=== PATIENT | female | born 1925 | race Caucasian/White ===

== ENCOUNTER 2016-04-29 10:02 | Day surgery (SDC) | payer MEDICARE, BC ==
[2005-08-22 01:16] VITALS: BP 118/68
[~2016-04-29] VITALS: Ht 160 cm; Wt 75.0 kg
[2016-04-29] VITALS (13 sets, daily range): BP systolic 128–155; BP diastolic 53–78; PULSE 54–65; TEMP 97.9
[~2016-04-29 10:02] MED LIST: ACETYLCYSTEINE; ASPI325T6 PO; ASPIRIN 32325 MG/TAB PO; ASPIRIN E.C. 8181 MG PO; ATIVAN 0.50.5 MG/TAB PO; CLARITIN; COLACE 100100 MG/CAP PO; COLESTID 1GM1 G PO; DIOVAN160 MG PO; DULCOLAX; DULCOLAX TAB5 MG PO; DUONEB 3 MG/3 ML3 ML IH; FOLIC ACID 40400 MCG PO; FOSAMAX 70MG TA70 MG PO; HYZAAR 12.5 MG-1 TAB PO; HYZAAR 50-12.1 UDTAB PO; IPRATROPIUM 2.2.5 ML IH; IRON325 M1 PO; LIPITOR 80MG80 MG PO; LOPRESSOR 225 MG/TAB PO; LOVENOX 4040 MG/0.4 SQ; MIRAPEX 0.0.125 MG/T; NITROSTAT0.4 MG/TAB SL; NORCO 325 MG-51 TAB PO; NORCO 325 MG-7.1 TAB PO; NORVASC 5MG5 MG/TAB PO; PLAVIX 75MG TAB75 MG PO; PRAMIPEXOLE0.125 MG PO; PREDNISONE 5MG5 MG PO; PRIL40; PULMICORT0.5 MG/21 IH; TYLENOL EXTRA500 M1 PO; VITAMIN C500 MG PO; ZOFRAN 4MG T4 MG/TAB PO
[2016-04-29] MEDS ORDERED: LOPRESSOR 225 MG/TAB PO (10:50)
[2016-04-29] MEDS ORDERED: MIRAPEX 0.0.125 MG/T PO (10:51)
[2016-04-29] MEDS ORDERED: COLESTID 1GM1 G PO (10:52)
[2016-04-29] MEDS ORDERED: DULCOLAX TAB5 MG PO (10:57)
[2016-04-29] MEDS ORDERED: COLACE 100100 MG/CAP PO (10:58)
[2016-04-29] MEDS ORDERED: ESTRACE0.1 MG/GM VG (10:58)
[2016-04-29 11:49] LABS: HEMATOCRIT 37.7 % (37.0-47.0); HEMOGLOBIN 12.1 g/dl (12.5-16.0); MEAN CELL VOLUME 91 fl (80.0-100.0); MEAN CORPUSCULAR HEMOGLOBIN 29 pg (27.0-31.0); MEAN CORPUSCULAR HGB CONC 32 g/dl (33.0-37.0); MEAN PLATELET VOLUME 9.6 fl (7.4-10.4); PLATELET COUNT 262 K/mm3 (130-400); RED BLOOD COUNT 4.16 M/mm3 (4.10-5.30); REDCELL DISTRIBUTION WIDTH-CV 13.8 % (11.5-14.5); WHITE BLOOD COUNT 6.5 K/mm3 (4.8-10.8)
[2016-04-29 11:52] LABS: INR 1.1 (0.8-3.0); PROTHROMBIN TIME 11.9 SECONDS (9.7-12.8)
[2016-04-29 11:56] LABS: CALCIUM 9.5 mg/dL (8.4-10.2); CREATININE, serum 1.29 mg/dL (0.52-1.25); POTASSIUM 4.4 mmol/L (3.4-5.0)
[2016-04-29] MEDS ORDERED: NITRO-DUR0.4 MG/PAT TD (14:08)
[2016-04-29] MEDS ORDERED: LOPRESSOR 550 MG/TAB PO (14:08)
== END 2016-04-29 17:58 | disposition home or self-care (01) ==
LOC: COL.RAD 10:02
PROVIDERS: Internal Medicine Cardiovascular Disease
DX: I25.10 Atherosclerotic heart disease of native coronary artery without angina pectoris (principal); R94.39 Abnormal result of other cardiovascular function study; Z95.5 Presence of coronary angioplasty implant and graft; I10 Essential (primary) hypertension; E78.2 Mixed hyperlipidemia; I25.2 Old myocardial infarction
CPT/HCPCS: C1760; C1894; J2250; J3010; Q9967